=== PATIENT | female | born 1950 | race African-American/Black ===

== ENCOUNTER 2019-02-06 10:30 | Day surgery (SDC) | payer OTHER ==
[2019-02-04 15:40] VITALS: BMI 30.9
[2019-02-06] MEDS ORDERED: PROPOFOL 20 ML ONE ×2 (10:36)
[2019-02-06 10:56] VITALS: TEMP 97.7
[2019-02-06 12:26] VITALS: BP 125/77; PULSE 65
--- NOTE | 2019-02-11 13:36 | PATH ---
Surgical Pathology Report Patient Name: MARILY MILLS [facility]. Rec. #: [id number] /Age/Gender: 1950 (Age: 68) / F Account: [id number] Location: [facility] Taken: 02/06/2019 Received: 02/06/2019 Reported: 02/11/2019 Physicians: Elizabeth Eubanks M.D. Specimen(s) Received A: BX SECOND PORTION OF DUODENUM B: BX GASTRIC ANTRUM C: BX GE JUNCTION D: BX GASTRIC BODY POLYP Clinical History GERD Postoperative diagnosis: Gastric polyp Final Diagnosis A. SECOND PORTION OF DUODENUM, BIOPSY: DUODENAL MUCOSA WITH NO PATHOLOGIC FINDINGS. B. GASTRIC ANTRUM, BIOPSY: MILD CHRONIC GASTRITIS WITH FEATURES OF REACTIVE GASTROPATHY. IMMUNOSTAIN IS NEGATIVE FOR H. PYLORI ORGANISMS. C. GE JUNCTION, BIOPSY: ESOPHAGO-GASTRIC JUNCTIONAL (SQUAMOCOLUMNAR) MUCOSA SHOWING MILD CHRONIC INFLAMMATION. NEGATIVE FOR INTESTINAL METAPLASIA. D. GASTRIC BODY, POLYP, BIOPSY: GASTRIC FUNDIC GLAND POLYP. IMMUNOSTAIN IS NEGATIVE FOR H. PYLORI ORGANISMS. Electronically Signed Aneta Olvera M.D. Gross Description A. Received in formalin, labeled "biopsy second portion of duodenum" is a abarca, irregular portion of soft tissue measuring 0.3 cm. in greatest dimension. The specimen is submitted in toto in one cassette. B. Received in formalin, labeled "biopsy gastric antrum" is a abarca, irregular portion of soft tissue measuring 0.3 cm. in greatest dimension. The specimen is submitted in toto in one cassette. C. Received in formalin, labeled "biopsy GE junction" is a abarca, irregular portion of soft tissue measuring 0.3 cm. in greatest dimension. The specimen is submitted in toto in one cassette. D. Received in formalin, labeled "biopsy gastric body polyp" is a abarca, irregular portion of soft tissue measuring 0.2 cm. in greatest dimension. The specimen is submitted in toto in one cassette. 02/07/2019 [facility]02/07/2019
== END 2019-02-06 12:45 | disposition home or self-care (01) ==
LOC: FASU-ENDO 10:30
PROVIDERS: ATTEND Internal Medicine Gastroenterology
PROC: 0DB68ZX Excision of Stomach, Via Natural or Artificial Opening Endoscopic, Diagnostic (ICD-10-PCS; 2019-02-06)
PROC: 0DB48ZX Excision of Esophagogastric Junction, Via Natural or Artificial Opening Endoscopic, Diagnostic (ICD-10-PCS; 2019-02-06)
PROC: 0DB98ZX Excision of Duodenum, Via Natural or Artificial Opening Endoscopic, Diagnostic (ICD-10-PCS; principal; 2019-02-06 11:36)
DX: K31.7 Polyp of stomach and duodenum (principal); K29.50 Unspecified chronic gastritis without bleeding; K31.9 Disease of stomach and duodenum, unspecified; K20.9 Esophagitis, unspecified; R10.13 Epigastric pain
CPT/HCPCS: 88305-TC; 88342-TC

== ENCOUNTER 2021-06-09 10:47 | Day surgery (SDC) | payer OTHER ==
[2021-06-04 17:01] VITALS: BMI 25.8
[2021-06-09 12:47] VITALS: BP 128/84; PULSE 62; TEMP 97.6
== END 2021-06-09 12:47 | disposition home or self-care (01) ==
LOC: FASU-ENDO 10:47
PROVIDERS: ATTEND Internal Medicine Gastroenterology
PROC: 0DB68ZX Excision of Stomach, Via Natural or Artificial Opening Endoscopic, Diagnostic (ICD-10-PCS; 2021-06-09)
PROC: 0DB48ZX Excision of Esophagogastric Junction, Via Natural or Artificial Opening Endoscopic, Diagnostic (ICD-10-PCS; 2021-06-09)
PROC: 0DB98ZX Excision of Duodenum, Via Natural or Artificial Opening Endoscopic, Diagnostic (ICD-10-PCS; principal; 2021-06-09 11:50)
DX: K29.80 Duodenitis without bleeding (principal); K29.50 Unspecified chronic gastritis without bleeding; K21.00 Gastro-esophageal reflux disease with esophagitis, without bleeding; R10.84 Generalized abdominal pain
CPT/HCPCS: 88305-TC; 88342-TC

== ENCOUNTER 2021-12-15 10:24 | Day surgery (SDC) | payer OTHER ==
[2021-12-14 12:09] VITALS: BMI 28.3
[2021-12-15 12:51] VITALS: RESP 18
[2021-12-15 13:21] VITALS: BP 122/74; PULSE 58
[2021-12-15 13:23] VITALS: TEMP 97.4
== END 2021-12-15 13:23 | disposition home or self-care (01) ==
LOC: FASU-ENDO 10:24
PROVIDERS: ATTEND Internal Medicine Gastroenterology
PROC: 0DBP8ZX Excision of Rectum, Via Natural or Artificial Opening Endoscopic, Diagnostic (ICD-10-PCS; principal; 2021-12-15 11:49)
DX: Z12.11 Encounter for screening for malignant neoplasm of colon (principal); K64.1 Second degree hemorrhoids; K63.89 Other specified diseases of intestine
CPT/HCPCS: 88305-TC

== ENCOUNTER 2023-09-27 08:42 | Day surgery (SDC) | payer OTHER ==
[2023-09-21 11:35] VITALS: BMI 29.9
[2023-09-27 10:45] VITALS: RESP 17
[2023-09-27 11:26] VITALS: BP 126/70; PULSE 60
[2023-09-27 11:28] VITALS: TEMP 97
== END 2023-09-27 11:28 | disposition home or self-care (01) ==
LOC: FASU-ENDO 08:42
PROVIDERS: ATTEND Internal Medicine Gastroenterology
PROC: 0DB78ZX Excision of Stomach, Pylorus, Via Natural or Artificial Opening Endoscopic, Diagnostic (ICD-10-PCS; 2023-09-27)
PROC: 0DB48ZX Excision of Esophagogastric Junction, Via Natural or Artificial Opening Endoscopic, Diagnostic (ICD-10-PCS; 2023-09-27)
PROC: 0DB98ZX Excision of Duodenum, Via Natural or Artificial Opening Endoscopic, Diagnostic (ICD-10-PCS; principal; 2023-09-27 10:19)
DX: K29.50 Unspecified chronic gastritis without bleeding (principal); K20.90 Esophagitis, unspecified without bleeding; K31.7 Polyp of stomach and duodenum; K31.89 Other diseases of stomach and duodenum
CPT/HCPCS: 88305-TC; 88342-TC